=== PATIENT | male | born 1965 | race Caucasian/White ===

== ENCOUNTER 2017-01-27 13:20 | Inpatient (IN) | payer MEDICAID ==
[~2017-01-27] VITALS: Ht 170.2 cm; Wt 75.7 kg
[2017-01-27] MEDS ORDERED: LORazepam 2 MG/ML VIAL IM PRN ×2 (16:15)
[2017-01-27] MEDS ORDERED: LORazepam 0.5 MG TAB PO PRN (16:15)
[2017-01-27] MEDS ORDERED: MAGNESIUM HYDROXIDE SUSP 30 ML CUP PO PRN (16:15)
[2017-01-27] MEDS ORDERED: ALUMINUM/MAGNESIUM/SIMETH 30 ML CUP PO PRN (16:15)
[2017-01-27] MEDS ORDERED: ACETAMINOPHEN 325 MG TAB PO PRN (16:15)
[2017-01-27] MEDS ORDERED: LORazepam 1 MG TAB PO PRN (16:15)
[2017-01-27] MEDS ORDERED: FOLIC ACID 1 MG TAB PO ONE (16:30)
[2017-01-27] MEDS: NICOTINE 21 MG/24 HR PATCH T-DERMAL SCH (16:30)
[2017-01-27] MEDS: MULTIVITAMIN TAB PO SCH (16:30)
[2017-01-27] MEDS: THIAMINE HCL 100 MG TAB PO SCH (16:30)
--- NOTE | 2017-01-27 16:52 | HHI.HP ---
Provisional Diagnosis Admission Date Jan 27, 2017 at 15:19 [place] I. Unspecified psychosis, rule out neurocognitive disorder Certification of Person's Competence To Provide Express and Informed Consent I have personally examined Dayton White , a person being served at [facility] on, Jan 27, 2017 16:42. Express and informed consent means consent voluntarily given in writing, by a competent person, after sufficient explanation and disclosure of the subject matter involved to enable the person to make a knowing and willful decision without any element of force, fraud, deceit, duress, or other form of constraint or coercion. This person is 18 years of age or older, is not now known to be incompetent to consent to treatment with a guardian advocate, and does not have a health care surrogate or proxy currently making medical treatment decisions. I have found this person to be one of the following: [] Competent to provide express and informed consent, as defined above, for voluntary admission to this facility and is competent to provide express and informed consent for treatment. He/she has the consistent capacity to make well reasoned, willful, and knowing decisions concerning his or her medical or mental health treatment. The person fully and consistently understands the purpose of the admission for examination/placement and is fully capable of personally exercising all rights assured under [place] [x] Incompetent to provide express and informed consent to voluntary admission, and this is incompetent to provide express and informed consent to treatment. The person must be transferred to involuntary status and a petition for a guardian advocate filed with the Circuit Court. [] Refusing to provide express and informed consent to voluntary admission but is competent to provide express and informed consent for treatment. The person must be discharged or transferred to involuntary status. Form shall be completed within 24 hours of a person's arrival at the receiving facility and filed in the clinical record of each person: 1. Admitted on a voluntary basis 2. Permitted to provide express and informed consent to his/her own treatment 3. Allowed to transfer from involuntary to voluntary status 4. Prior to permitting a person to consent to his or her own treatment after having been previously found incompetent to consent to treatment. History of Present Illness Capacity: Lacks Capacity HPI Patient is a 51-year-old man, reports being with 2 children, states he is employed, with unclear past psychiatric history but as per chart alcohol use disorder, depression, unknown previous psychiatric hospitalizations or suicide attempts, with a past medical history as per chart with DVT, history of lung and throat cancer, gout was presented initially on 01/22/17 at [facility] for altered mental status and subsequently brought to the Ying act due to concerns of patient's ability to care for himself and was transferred to the inpatient psychiatry for further evaluation and management. Reviewing previous chart frontal in hospital patient had a head CT which was noted to have old infarct in the medial right cerebellar hemisphere, chest x-ray was negative and urine toxicology was negative. Patient was found walking in the hallway, cooperative interview with underwriter nurse. Patient is alert and oriented only to person not place or date. Patient states that presently and I is Obama. Patient reports that he is living with his but as per chart emergency contact is Blanksa White which may be due to sister. Patient is a poor historian with him, as will speech at times and disorganized. Past psychiatric history unclear as per patient he denies but is noted as per chart the patient is on BuSpar 30 minutes by mouth twice a day, diazepam 5 mg by mouth twice a day, lithium 300 mg by mouth 3 times a day risperidone 2 mg by mouth twice a day as well as aspirin, atorvastatin, folic acid, propanolol and thiamine. , Patient denies previous psychiatric hospitalization or suicide attempts Substance use history: Patient states that he quit using tobacco 2 years ago, continues daily alcohol use about 3 beers at a time last use was 7 days ago. Marijuana use last use was 2 weeks ago which she states she is occasionally, patient still reports remote cocaine use one year ago. Past medical history: Patient denies but as per chart DVT, history of lung and throat cancer and gout Allergies: NKDA Social history: Patient states he is domicile with a and 2 children for 40 years old, employed, eyes education high school, no yarsani affiliation, no background, no access to firearms. Review of Systems Except as stated in HPI: all other systems reviewed are Neg Past Psych History Psychological trauma history Unknown as patient is a poor historian Violence risk - others (6 mos) Low Violence risk - self (6 mos) Low Substance Abuse History Drugs/Alcohol past 12 months Patient states that he quit using tobacco 2 years ago, continues daily alcohol use about 3 beers at a time last use was 7 days ago. Marijuana use last use was 2 weeks ago which she states she is occasionally, patient still reports remote cocaine use one year ago. Past Family Social History Coded Allergies: No Known Allergies (Unverified Allergy, Unknown, 01/27/17) Current Medications Medications (Trade) Dose Ordered Sig/Angela Route Start Time Stop Time Status Last Admin (Ativan) 1 mg Q6H PRN PO 01/27/17 16:15 (Ativan Inj) 1 mg Q6H PRN IM 01/27/17 16:15 (Benadryl) 50 mg HS PRN PO 01/27/17 16:15 (Tylenol) 650 mg Q4H PRN PO 01/27/17 16:15 (Milk Of Magnesia Liq) 30 ml DAILY PRN PO 01/27/17 16:15 (Mag-Al Plus Susp Liq) 30 ml Q6H PRN PO 01/27/17 16:15 (Habitrol 21 Mg Patch.24 Hr) 1 patch DAILY T-DERMAL 01/27/17 16:30 Miscellaneous Information 1 DAILY T-DERMAL 01/28/17 09:00 (Theragran) 1 tab DAILY PO 01/27/17 16:30 (Vitamin B1) 100 mg DAILY PO 01/27/17 16:30 (Folate) 1 mg DAILY PO 01/28/17 09:00 Family Psych History Unknown as patient is a poor historian Social History Patient states he is domicile with a and 2 children for 40 years old, employed, eyes education high school, no yarsani affiliation, no background, no access to firearms. Patient's Strengths (min. 2) Verbal and communicative Physical Exam The patient upon evaluation not noted to be in acute distress, no gross motor abnormalities noted no tremor or EPS and signs of withdrawal at this time. No psychomotor agitation but is noted to have some psychomotor retardation. Mental Status Examination Appearance: Disheveled Consciousness: Alert Orientation: Person Motor Activity: Normal gait Speech: Slow, Incoherent (at times) Language: Adequate Fund of Knowledge: Inadequate Attention and Concentration: Inadequate Memory: Impaired Mood: Other ("okay") Affect: Blunt Thought Process & Associations: Disorganized Thought Content: Thought blocking Hallucination Type: None Delusion Type: None Suicidal Ideation: No Suicidal Plan: No Suicidal Intention: No Homicidal Ideation: No Homicidal Plan: No Homicidal Intention: No Insight: Poor Judgment: Poor Assessment & Plan Problem List: (1) Unspecified psychosis ICD Codes: F29 - Unspecified psychosis not due to a substance or known physiological condition Assessment & Plan Estimated LOS: 5-7 days. Patient is a 51-year-old man with a history of bipolar disorder, alcohol use disorder, depression as per chart, with a past medical history of DVT, history of lung and throat cancer and gout, who was transferred from [facility] due to concern for patient's ability care for self which she was put on a Ying act for admitted to the inpatient psychiatry for further evaluation and management here. Patient this time noted to be very poor historian, alert and oriented to person only and disorganized. Will resume medications as per chart from [facility]. Patient may have primary psychiatric diagnoses but was be ruled out of a possible neurocognitive disorder due to chronic alcohol use as well as history of stroke. Collateral information pending from family. Patient will be on CIWA protocol due to reported daily alcohol use. Labs and consult for hospitalist ordered. Discharge planning in progress Discharge Planning Patient to be discharged back home for possible placement once psychiatrically stable Elbert Jones MD Jan 27, 2017 16:52
[2017-01-27] MEDS: LITHIUM CARBONATE 300 MG TAB PO SCH (18:00)
[2017-01-27 20:06] VITALS: BP 119/76; PULSE 107; TEMP 98; O2SAT 97
[2017-01-27] MEDS: risperiDONE 1 MG TAB PO SCH (20:35)
[2017-01-28 06:27] VITALS: BP 104/70; PULSE 86; RESP 16; TEMP 98.2; O2SAT 99
[2017-01-28] MEDS: THIAMINE HCL 100 MG TAB PO SCH ×2 (09:00→09:10)
[2017-01-28] MEDS: REMOVE OLD PATCH T-DERMAL SCH (09:00)
[2017-01-28] MEDS: FOLIC ACID 1 MG TAB PO SCH ×2 (09:00→09:08)
[2017-01-28] MEDS: ASPIRIN EC 325 MG TABEC PO SCH (09:05)
[2017-01-28] MEDS: risperiDONE 1 MG TAB PO SCH ×2 (09:05→20:24)
[2017-01-28] MEDS: MULTIVITAMIN TAB PO SCH (09:05)
[2017-01-28] MEDS: ATORVASTATIN 10 MG TAB PO SCH (09:06)
[2017-01-28] MEDS: LITHIUM CARBONATE 300 MG TAB PO SCH ×3 (09:06→19:30)
[2017-01-28] MEDS: NICOTINE 21 MG/24 HR PATCH T-DERMAL SCH (09:11)
[2017-01-28 10:39] LABS: ANION GAP 8 MEQ/L (5-15); AST (GOT) 29 U/L (15-37); BICARBONATE 23.4 MEQ/L (21.0-32.0); BLOOD UREA NITROGEN 6 MG/DL (7-18); CHLORIDE 106 MEQ/L (98-107); GLOMERULAR FILTRATION RATE 85 ML/MIN (>89); MAGNESIUM 1.7 MG/DL (1.5-2.5); POTASSIUM 3.6 MEQ/L (3.5-5.1); SODIUM (NA) 137 MEQ/L (136-145)
[2017-01-28 10:48] LABS: ALKALINE PHOSPHATASE 72 U/L (45-117); ALT (GPT) 26 U/L (12-78); FREE T4 1.32 NG/DL (0.76-1.46); HDL CHOLESTEROL 44.2 MG/DL (40.0-60.0); LDL CHOLESTEROL 45 MG/DL (0-99); TOTAL BILIRUBIN ADULT 0.5 MG/DL (0.2-1.0)
--- NOTE | 2017-01-28 13:10 | EKG ---
Date Performed: 01/28/2017 Time Performed: 11:23:36 PTAGE: 51 years EKG: Sinus rhythm Small inferior Q-waves of undetermined significance Baseline electrical artifact PREVIOUS TRACING : 08/10/2011 14.38 Since previous tracing, the small inferior Q-waves ar e new, otherwise no significant change. Cause of the small Q-waves is undetermined. They are not larg e enough to meet criteria for inferior infarct. DOCTOR: Stephan Gomez Interpretating Date/Time 01/28/2017 13:08:39
[2017-01-28 13:45] LABS: AUTOMATED NEUTROPHIL # 6.6 TH/MM3 (1.8-7.7); BASOPHIL # 0.2 TH/MM3 (0-0.2); BASOPHIL % 2.3 % (0.0-2.0); EOSINOPHIL # 0.3 TH/MM3 (0-0.4); EOSINOPHIL % 3.7 % (0.0-4.0); LYMPH % 13.8 % (9.0-44.0); LYMPHOCYTE # 1.3 TH/MM3 (1.0-4.8); MEAN CELL VOLUME 90.9 FL (80.0-100.0); MEAN CORPUSCULAR HEMOGLOBIN 30.7 PG (27.0-34.0); MEAN CORPUSCULAR HGB CONC 33.8 % (32.0-36.0); NEUT % 72.2 % (16.0-70.0); PLATELET COUNT 294 TH/MM3 (150-450); RED BLOOD COUNT 4.62 MIL/MM3 (4.50-5.90); RED CELL DISTRIBUTION WIDTH 13.9 % (11.6-17.2); WHITE BLOOD COUNT 9.1 TH/MM3 (4.0-11.0)
[2017-01-28 13:48] LABS: HEMO FLAGS AUTO DIFF
--- NOTE | 2017-01-28 13:55 | HHI.PYPN ---
Subjective Remarks This is a request for second opinion. Admission note was reviewed and I agree with the contents. Case was discussed with nursing and patient was evaluated. Patient is alert and oriented 2. 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 He feels that he is not himself but cannot tell me why. He endorses suicidal ideation that are fleeting in nature without any plan or intent. Appears disheveled and preoccupied. There are no outbursts. There are no manic symptoms. [place] level is pending Mental Status Examination Appearance: Disheveled Consciousness: Alert Orientation: Person, Place Motor Activity: Normal gait Speech: Slow, Incoherent (at times) Language: Adequate Fund of Knowledge: Inadequate Attention and Concentration: Inadequate Memory: Impaired Mood: Other ("okay") Affect: Blunt Thought Process & Associations: Disorganized Thought Content: Thought blocking Hallucination Type: None Delusion Type: None Suicidal Ideation: Yes Suicidal Plan: No Suicidal Intention: No Homicidal Ideation: No Homicidal Plan: No Homicidal Intention: No Insight: Poor Judgment: Poor Results Labs Test 01/28/17 08:17 01/28/17 13:15 Blood Urea Nitrogen 6 MG/DL Creatinine 0.93 MG/DL Random Glucose 68 MG/DL Total Protein 6.7 GM/DL Albumin 3.2 GM/DL Calcium Level 9.2 MG/DL Phosphorus Level 3.2 MG/DL Magnesium Level 1.7 MG/DL Alkaline Phosphatase 72 U/L Aspartate Amino Transf (AST/SGOT) 29 U/L Alanine Aminotransferase (ALT/SGPT) 26 U/L Total Bilirubin 0.5 MG/DL Sodium Level 137 MEQ/L Potassium Level 3.6 MEQ/L Chloride Level 106 MEQ/L Carbon Dioxide Level 23.4 MEQ/L Anion Gap 8 MEQ/L Estimat Glomerular Filtration Rate 85 ML/MIN Triglycerides Level 97 MG/DL Cholesterol Level 109 MG/DL LDL Cholesterol 45 MG/DL HDL Cholesterol 44.2 MG/DL Cholesterol/HDL Ratio 2.46 RATIO Free Thyroxine 1.32 NG/DL Thyroid Stimulating Hormone 3rd Gen 7.130 uIU/ML White Blood Count 9.1 TH/MM3 Red Blood Count 4.62 MIL/MM3 Hemoglobin 14.2 GM/DL Hematocrit 42.0 % Mean Corpuscular Volume 90.9 FL Mean Corpuscular Hemoglobin 30.7 PG Mean Corpuscular Hemoglobin Concent 33.8 % Red Cell Distribution Width 13.9 % Platelet Count 294 TH/MM3 Mean Platelet Volume 8.3 FL Neutrophils (%) (Auto) 72.2 % Lymphocytes (%) (Auto) 13.8 % Monocytes (%) (Auto) 8.0 % Eosinophils (%) (Auto) 3.7 % Basophils (%) (Auto) 2.3 % Neutrophils # (Auto) 6.6 TH/MM3 Lymphocytes # (Auto) 1.3 TH/MM3 Monocytes # (Auto) 0.7 TH/MM3 Eosinophils # (Auto) 0.3 TH/MM3 Basophils # (Auto) 0.2 TH/MM3 CBC Comment AUTO DIFF Vitals/IOs Vital Signs Date Time Temp Pulse Resp B/P (MAP) Pulse Ox O2 Delivery O2 Flow Rate FiO2 01/28/17 06:27 98.2 86 16 104/70 (81) 99 Assessment & Plan Problem List: (1) Unspecified psychosis ICD Codes: F29 - Unspecified psychosis not due to a substance or known physiological condition Assessment & Plan I agree with the first opinion to continue petition. Criteria include suicidal ideation Justification for Cont. Inpt. Patient will decompensate in a less restrictive setting Shine Phillip DO Jan 28, 2017 13:55
[2017-01-28 14:35] LABS: BANDS 4 % (0-6); EOSINOPHILS 2 % (0-4); MYELOCYTES 1 % (0-0); NEUTROPHIL # MANUAL DIFF 7.4 TH/MM3 (1.8-7.7); POLYS (SEG NEUTROPHILS) 76 % (16-70); WBC DIFF SAMPLE 100
[2017-01-28 14:36] LABS: PLATELET ESTIMATE SMEAR NORMAL (NORMAL); PLATELET MORPHOLOGY NORMAL (NORMAL); SCAN/DIFF FINAL DIFF MANUAL
--- NOTE | 2017-01-28 15:21 | PD.CONS ---
HPI Service [facility] Hospitalists Consult Requested By Dr. 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 Hospitalist consultation was requested for medical management. Patient denies any chronic medical problems. States that he does not take any medications regularly. He has no physical complaints at this time. Review of Systems Constitutional: DENIES: Fever, Chills, Night Sweats Eyes: DENIES: Blurred vision, Vision loss Ears, nose, mouth, throat: DENIES: Hearing loss Respiratory: DENIES: Cough, Wheezing, Sputum production, Shortness of breath Cardiovascular: DENIES: Chest pain, Palpitations, Dyspnea on Exertion, Lower Extremity Edema Gastrointestinal: DENIES: Abdominal pain, Constipation, Diarrhea, Nausea, Vomiting Genitourinary: DENIES: Urinary frequency, Urinary incontinence, Urgency, Hematuria, Dysuria, Nocturia Musculoskeletal: DENIES: Joint pain, Muscle aches Integumentary: DENIES: Pruritus, Rash Hematologic/lymphatic: DENIES: Bruising Neurologic: DENIES: Headache Past Family Social History Allergies: Coded Allergies: No Known Allergies (Unverified Allergy, Unknown, 01/27/17) Past Medical History Denies. Psychiatry notes describe history of bipolar disorder, alcohol use disorder, depression, DVT, history of lung and throat cancer, gout. Past Surgical History Tonsillectomy Reported Medications None Family History Patient was adopted Social History The patient states that he used marijuana and cocaine in the past. Denies tobacco use. Per psychiatry notes, patient reports quitting smoking 2 years ago. He also reports drinking 3 beers a day. Stated that his last marijuana use was 2 weeks ago and last cocaine use was one year ago. Physical Exam Vital Signs Vital Signs Date Time Temp Pulse Resp B/P (MAP) Pulse Ox O2 Delivery O2 Flow Rate FiO2 01/28/17 06:27 98.2 86 16 104/70 (81) 99 01/27/17 20:06 98.0 107 119/76 (90) 97 Physical Exam GENERAL: Well-nourished, well-developed male in no acute distress. HEENT: Normocephalic, atraumatic. Pupils equal, round and reactive. Extraocular movements intact. No scleral icterus. No injection or drainage. Oropharynx is clear. Mucous membranes are moist. CARDIOVASCULAR: Regular rate and rhythm without murmurs, gallops, or rubs. RESPIRATORY: Clear to auscultation. No wheezes, rales, or rhonchi. Breathing is non-labored. GASTROINTESTINAL: Abdomen soft, non-tender, nondistended. EXTREMITIES: No lower extremity edema. No calf tenderness. PSYCH: Alert and oriented x 3. Laboratory Laboratory Tests Test 01/28/17 08:17 01/28/17 13:15 Blood Urea Nitrogen 6 Creatinine 0.93 Random Glucose 68 Total Protein 6.7 Albumin 3.2 Calcium Level 9.2 Phosphorus Level 3.2 Magnesium Level 1.7 Alkaline Phosphatase 72 Aspartate Amino Transf (AST/SGOT) 29 Alanine Aminotransferase (ALT/SGPT) 26 Total Bilirubin 0.5 Sodium Level 137 Potassium Level 3.6 Chloride Level 106 Carbon Dioxide Level 23.4 Anion Gap 8 Estimat Glomerular Filtration Rate 85 Triglycerides Level 97 Cholesterol Level 109 LDL Cholesterol 45 HDL Cholesterol 44.2 Cholesterol/HDL Ratio 2.46 Free Thyroxine 1.32 Thyroid Stimulating Hormone 3rd Gen 7.130 White Blood Count 9.1 Red Blood Count 4.62 Hemoglobin 14.2 Hematocrit 42.0 Mean Corpuscular Volume 90.9 Mean Corpuscular Hemoglobin 30.7 Mean Corpuscular Hemoglobin Concent 33.8 Red Cell Distribution Width 13.9 Platelet Count 294 Mean Platelet Volume 8.3 Neutrophils (%) (Auto) 72.2 Lymphocytes (%) (Auto) 13.8 Monocytes (%) (Auto) 8.0 Eosinophils (%) (Auto) 3.7 Basophils (%) (Auto) 2.3 Neutrophils # (Auto) 6.6 Lymphocytes # (Auto) 1.3 Monocytes # (Auto) 0.7 Eosinophils # (Auto) 0.3 Basophils # (Auto) 0.2 CBC Comment AUTO DIFF Differential Total Cells Counted 100 Neutrophils % (Manual) 76 Band Neutrophils % 4 Lymphocytes % 9 Monocytes % 8 Eosinophils % 2 Neutrophils # (Manual) 7.4 Myelocytes 1 Differential Comment FINAL DIFF MANUAL Platelet Estimate NORMAL Platelet Morphology Comment NORMAL [place] Level 1.5 Result Diagram: 01/28/17 1315 01/28/17 0817 Assessment and Plan Assessment and Plan 1. Unspecified psychosis: Management per psychiatry. 2. History of polysubstance abuse: Patient reports remote use of cocaine, and occasional use of marijuana. 3. History of alcohol abuse: [facility] protocol. Folic acid, thiamine, multivitamin. 4. Elevated TSH: Free T4 is within normal limits. Not on thyroid medication. Would advise recheck in [address] [facility] will sign off. Please reconsult if necessary. Crispin Martin MD Jan 28, 2017 15:21
[2017-01-28 17:59] VITALS: BP 150/89; PULSE 109; RESP 17; TEMP 97.8; O2SAT 96
[2017-01-29 05:26] VITALS: BP 116/53; PULSE 80; RESP 16; TEMP 97.9; O2SAT 96
--- NOTE | 2017-01-29 05:49 | MG ---
cc: DERREK MCKEON Lab No: Date: 01/28/2017 Age: 51 Sex: M Race: DATE OF [address] Jones MEDICAL HISTORY 1. The patient was [facility] Acted for altered mental status and being unable to care for himself. 2. History of alcohol, tobacco, substance abuse, marijuana and history of cocaine. 3. Depression, anxiety. 4. DVT. 5. Throat cancer. 6. Status post lobectomy. 7. Gout. 8. Encephalopathy. 9. Stroke. 10. High cholesterol. 11. Chest pain. MEDICATIONS 1. Folate. 2. Aspirin. 3. Lipitor. DESCRIPTION The background activity is 8-9 Hz alpha superimposed by excess beta activity. An EEG recording is contaminated by excessive movement and muscle artifact. Hyperventilation was omitted. Photic stimulation did not elicit a regular driving response. There were no electrographic seizures or ictal activity or epileptiform discharges noted. INTERPRETATION This is a normal awake EEG. Beta activity is a nonspecific finding that may be related to medication adverse effect like benzos or barbiturates. There were no electrographic, seizures/ictal activity or epileptiform discharges noted during the recording. Clinical correlation is recommended. MD JEFFREY Castro/SUSANA /10:35 PM /5:42 AM MTDJulia
[2017-01-29] MEDS: THIAMINE HCL 100 MG TAB PO SCH ×2 (08:59→09:00)
[2017-01-29] MEDS: LITHIUM CARBONATE 300 MG TAB PO SCH ×3 (08:59→22:09)
[2017-01-29] MEDS: ATORVASTATIN 10 MG TAB PO SCH (08:59)
[2017-01-29] MEDS: risperiDONE 1 MG TAB PO SCH ×2 (08:59→22:09)
[2017-01-29] MEDS: MULTIVITAMIN TAB PO SCH (08:59)
[2017-01-29] MEDS: REMOVE OLD PATCH T-DERMAL SCH (09:00)
[2017-01-29] MEDS: ASPIRIN EC 325 MG TABEC PO SCH (09:00)
[2017-01-29] MEDS: FOLIC ACID 1 MG TAB PO SCH ×2 (09:00)
[2017-01-29] MEDS: NICOTINE 21 MG/24 HR PATCH T-DERMAL SCH (09:00)
[2017-01-29 16:31] LABS: HEMOGLOBIN A1a 0.9 %; HEMOGLOBIN A1b 0.7 %; HEMOGLOBIN Ao 86.5 %; HEMOGLOBIN F 1.1 %; HEMOGLOBIN LA1C 1.8 %; HEMOGLOBIN P3 3.4 %
[2017-01-29 16:49] VITALS: BP 124/72; PULSE 97; RESP 18; TEMP 98.8; O2SAT 97
--- NOTE | 2017-01-29 20:36 | HHI.PYPN ---
Subjective Remarks Patient is seen for follow up; chart reviewed. Patient found lying on hospital bed, calm and cooperative. Patient noted to be slightly more engaging in interview but noted patient to have difficulty with memory. Initially patient stated living with his previously but now states that he was living with a friend. He states that he was visited by these friends recently, Asael and his . He is currently alert and oriented to person and date only and believes he is in a rehabilitation program. He denies SI, HI, AVH or delusions at this time. Review of Systems Except as stated in HPI: all other systems reviewed are Neg Mental Status Examination Appearance: Disheveled Consciousness: Alert Orientation: Person, Place Motor Activity: Normal gait Speech: Slow, Incoherent (at times) Language: Adequate Fund of Knowledge: Inadequate Attention and Concentration: Inadequate Memory: Impaired Mood: Other ("okay") Affect: Blunt Thought Process & Associations: Disorganized Thought Content: Thought blocking Hallucination Type: None Delusion Type: None Suicidal Ideation: No Suicidal Plan: No Suicidal Intention: No Homicidal Ideation: No Homicidal Plan: No Homicidal Intention: No Insight: Poor Judgment: Poor Results Vitals/IOs Vital Signs Date Time Temp Pulse Resp B/P (MAP) Pulse Ox O2 Delivery O2 Flow Rate FiO2 01/29/17 16:49 98.8 97 18 124/72 (89) 97 Assessment & Plan Problem List: (1) Unspecified psychosis ICD Codes: F29 - Unspecified psychosis not due to a substance or known physiological condition Assessment & Plan Patient at this time is noted to be confused and alert and oriented to person and date. Unclear whom he lives with and collateral is pending as it will provide more information to his current living conditions as well as what services he will require. Patient is a poor historian. Recent EEG was normal, [place] level was supratherapeutic (1.5) and will decrease [place] to 300mg PO daily and recheck levels. Continue rest of medications. Collateral information pending. Discharge planning in progress. Justification for Cont. Inpt. At risk for further decompensation if at lower level of care. Elbert Jones MD Jan 29, 2017 20:36
[2017-01-29 22:00] VITALS: BP 133/69; PULSE 90; RESP 18; TEMP 97.6
[2017-01-30 06:31] VITALS: BP 141/69; PULSE 85; RESP 18; TEMP 98; O2SAT 98
[2017-01-30] MEDS: REMOVE OLD PATCH T-DERMAL SCH (09:00)
[2017-01-30] MEDS: FOLIC ACID 1 MG TAB PO SCH ×2 (09:00→09:06)
[2017-01-30] MEDS: THIAMINE HCL 100 MG TAB PO SCH ×2 (09:00→09:05)
[2017-01-30] MEDS: MULTIVITAMIN TAB PO SCH (09:05)
[2017-01-30] MEDS: ASPIRIN EC 325 MG TABEC PO SCH (09:05)
[2017-01-30] MEDS: LITHIUM CARBONATE 300 MG TAB PO SCH ×2 (09:05→21:47)
[2017-01-30] MEDS: ATORVASTATIN 10 MG TAB PO SCH (09:05)
[2017-01-30] MEDS: NICOTINE 21 MG/24 HR PATCH T-DERMAL SCH (09:06)
[2017-01-30] MEDS: risperiDONE 1 MG TAB PO SCH ×2 (09:06→21:46)
--- NOTE | 2017-01-30 14:46 | HHI.PYPN ---
Subjective Remarks Patient seen for follow-up, chart reviewed. Patient found sitting on hospital bed noted to be calm and cooperative. Patient stated he is feeling "terrible", reports he has been having difficulty with his concentration for the past 2 weeks. Patient states that he has been living alone for the past 4 months and that he last saw his primary care doctor 3 weeks ago was unable to recall name of his doctor. Patient continues to give conflicting reports of whom he has been living with, initially she had stated he is lives with his and his children than stated living with some friends was unable to recall their names and stated that he lives alone for the past 4 months. Patient continues to be a poor historian and unreliable at this time. Review of Systems Except as stated in HPI: all other systems reviewed are Neg Mental Status Examination Appearance: Disheveled Consciousness: Alert Orientation: Person, Place Motor Activity: Normal gait Speech: Slow, Incoherent (at times) Language: Adequate Fund of Knowledge: Inadequate Attention and Concentration: Inadequate Memory: Impaired Mood: Sad, Other ("okay") Affect: Blunt Thought Process & Associations: Disorganized Thought Content: Thought blocking Hallucination Type: None Delusion Type: None Suicidal Ideation: No Suicidal Plan: No Suicidal Intention: No Homicidal Ideation: No Homicidal Plan: No Homicidal Intention: No Insight: Poor Judgment: Poor Results Vitals/IOs Vital Signs Date Time Temp Pulse Resp B/P (MAP) Pulse Ox O2 Delivery O2 Flow Rate FiO2 01/30/17 06:31 98.0 85 18 141/69 (93) 98 Intake and Output 01/30/17 01/30/17 01/30/17 07:59 15:59 23:59 Intake Total 480 ml 240 ml Balance 480 ml 240 ml Assessment & Plan Problem List: (1) Unspecified psychosis ICD Codes: F29 - Unspecified psychosis not due to a substance or known physiological condition Assessment & Plan Patient this time continues to have cognitive difficulties as well as impairment in memory. Patient noted to be internally preoccupied and unable to engage effectively interview. We'll continue current treatment. Will order head CT, recent EEG was normal study, will order labs for the sees RPR, UA, HIV post (. Continue to obtain collateral information as patient has minimal history that is related as he is a poor historian at this time and unable to engage effectively. Discharge planning in progress Justification for Cont. Inpt. At risk for further decompensation if at lower level of care Discharge Planning Unclear who patient is living with. Elbert Jones MD Jan 30, 2017 14:46
[2017-01-30 18:00] VITALS: BP 115/80; PULSE 127; RESP 22; TEMP 98.3; O2SAT 94
[2017-01-31 05:59] VITALS: BP 142/89; PULSE 91; RESP 18; TEMP 98; O2SAT 98
[2017-01-31] MEDS: FOLIC ACID 1 MG TAB PO SCH ×2 (08:31→08:35)
[2017-01-31] MEDS: ATORVASTATIN 10 MG TAB PO SCH (08:32)
[2017-01-31] MEDS: MULTIVITAMIN TAB PO SCH (08:32)
[2017-01-31] MEDS: ASPIRIN EC 325 MG TABEC PO SCH (08:32)
[2017-01-31] MEDS: NICOTINE 21 MG/24 HR PATCH T-DERMAL SCH (08:32)
[2017-01-31] MEDS: LITHIUM CARBONATE 300 MG TAB PO SCH ×2 (08:32→21:23)
[2017-01-31] MEDS: THIAMINE HCL 100 MG TAB PO SCH ×2 (08:32→08:35)
[2017-01-31] MEDS: risperiDONE 1 MG TAB PO SCH ×2 (08:32→21:22)
[2017-01-31] MEDS: REMOVE OLD PATCH T-DERMAL SCH (08:33)
--- NOTE | 2017-01-31 09:09 | PD.TTN ---
Patient Problems 1. Discharge planning 2. Medication compliance 3. Knowledge deficit 4. Lack of coping skills Progress Toward Goals Provider Present: Dr. Telma Jones Provider Input: 01-31-17 Dr. Jones reported the patient is a transfer from another hospital. Patient has been running away from his home, is a poor historian, and confused. Additionally, patient suffers from metabolic disturbances. Psychiatric Counselors Present: ANNE Obregon Psych Therapist Input: 01-31-17 Counselor will check with [facility] in an effort to determine patient's previous medical and psychiatric history. Group Spec/RT/OT/MONTAÑO Present: SABRA Rick Group Spec/RT/OT/MONTAÑO Input: 01-31-17 Patient is refusing to participate in recreational group activities. Documentation Scribe: Anne Obregon Date Resolved: Jan 31, 2017 Marie Corral Jan 31, 2017 09:09
--- NOTE | 2017-01-31 09:26 | RADRPT ---
EXAM DATE/TIME: 01/31/2017 09:10 [place] COMPARISON: No previous studies available for comparison. INDICATIONS : Altered mental status, psychosis. RADIATION DOSE: 56.35 CTDIvol (mGy) MEDICAL HISTORY : Stroke. Carcinoma, lung. Hypertension. SURGICAL HISTORY : None. ENCOUNTER: Initial ACUITY: 1 day PAIN SCALE: 0/10 LOCATION: cranial TECHNIQUE: Multiple contiguous axial images were obtained of the head. Using automated exposure control and adj ustment of the mA and/or kV according to patient size, radiation dose was kept as low as reasonably a chievable to obtain optimal diagnostic quality images. DICOM format image data is available electro nically for review and comparison. FINDINGS: CEREBRUM: The ventricles are normal for age. No evidence of midline shift, mass lesion, hemorrhage or acute in farction. No extra-axial fluid collections are seen. POSTERIOR FOSSA: Low-density lesion right cerebellum. The brainstem is intact. The 4th ventricle is midline. The cer ebellopontine angle is unremarkable. EXTRACRANIAL: The visualized portion of the orbits is intact. SKULL: The calvaria is intact. No evidence of skull fracture. CONCLUSION: 1. Remote infarct right cerebellum. 2. No acute intracranial abnormality. Elbert Bentley MD on January 31, 2017 at 9:24 Board Certified Radiologist. This report was verified electronically.
--- NOTE | 2017-01-31 16:03 | HHI.PYPN ---
Subjective Remarks Patient seen for follow-up, chart reviewed. Discussion she staff reported the patient had CT scan done earlier this morning, slept well, noted be up walking on the unit and noted that patient has spoken with his mother. Patient was found having lunch but able to interact with interview today. Patient states that he has been feeling "okay". Patient states she'll visited by his caregivers yesterday was not nearly was able to elaborate details. Patient noted to be very tearful states he wants his life back. 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 Currently he states he wants to go back to work. As stated that he wants put his life back together. Patient at this time denies any perceptual disturbances or delusions. Patient noted to have difficulty with speech, less thought blocking today more engaging and more affect today. Head CT reported remote right infarct in cerebellum, labs reported RPR was negative, with HIV was negative as well. Collateral contacts: Jah and Anna Wright [phone]; Antonietta (mom - also power of attorney recruiter) [phone] Review of Systems Except as stated in HPI: all other systems reviewed are Neg Mental Status Examination Appearance: Disheveled Consciousness: Alert Orientation: Person, Place Motor Activity: Normal gait Speech: Slow, Incoherent (at times due to patient not having his dentures) Language: Adequate Fund of Knowledge: Inadequate Attention and Concentration: Inadequate Memory: Impaired Mood: Sad, Other ("okay") Affect: Sad, Other (tearful) Thought Process & Associations: Linear, Other (concrete) Thought Content: Thought blocking Hallucination Type: None Delusion Type: None Suicidal Ideation: No Suicidal Plan: No Suicidal Intention: No Homicidal Ideation: No Homicidal Plan: No Homicidal Intention: No Insight: Poor Judgment: Poor Results Labs Labs reviewed Test 01/31/17 07:17 Vitamin B12 Level 1313 PG/ML Rapid Plasma Reagin NON-REACTIVE HIV (1&2) Antibody NEGATIVE Vitals/IOs Vital Signs Date Time Temp Pulse Resp B/P (MAP) Pulse Ox O2 Delivery O2 Flow Rate FiO2 01/31/17 05:59 98.0 91 18 142/89 (106) 98 Assessment & Plan Problem List: (1) Unspecified psychosis ICD Codes: F29 - Unspecified psychosis not due to a substance or known physiological condition Assessment & Plan Patient at this time continues to be noted to have some psychomotor retardation , speech latency as well as some thought blocking but appears to be able to engage more in interview and noted to have more reactive affect. Recent head CT you was noted to have an old infarct but no acute lesions, RPR and HIV were negative. We'll order a lithium level today along with BMP. Continue current treatment. Collateral information pending. Discharge planning in progress Justification for Cont. Inpt. At risk for further decompensation if at lower level of care Discharge Planning Patient to return back to residence which appears to be to caregivers but requires confirmation. Elbert Jones MD Jan 31, 2017 16:03
[2017-01-31 16:43] VITALS: BP 112/65; PULSE 107; RESP 18; TEMP 97.7; O2SAT 98
[2017-01-31] MEDS: diphenhydrAMINE HCL 50 MG CAP PO PRN (21:23)
[2017-02-01 01:45] LABS: BICARBONATE 28.2 MEQ/L (21.0-32.0); POTASSIUM 3.8 MEQ/L (3.5-5.1)
[2017-02-01 05:30] VITALS: BP 120/75; PULSE 73; RESP 16; TEMP 98; O2SAT 98
[2017-02-01] MEDS: ATORVASTATIN 10 MG TAB PO SCH (08:38)
[2017-02-01] MEDS: MULTIVITAMIN TAB PO SCH (08:38)
[2017-02-01] MEDS: ASPIRIN EC 325 MG TABEC PO SCH (08:38)
[2017-02-01] MEDS: risperiDONE 1 MG TAB PO SCH ×2 (08:39→21:11)
[2017-02-01] MEDS: LITHIUM CARBONATE 300 MG TAB PO SCH (08:39)
[2017-02-01] MEDS: NICOTINE 21 MG/24 HR PATCH T-DERMAL SCH (08:41)
[2017-02-01] MEDS: REMOVE OLD PATCH T-DERMAL SCH (08:41)
[2017-02-01] MEDS: THIAMINE HCL 100 MG TAB PO SCH ×2 (09:00)
[2017-02-01] MEDS: FOLIC ACID 1 MG TAB PO SCH ×2 (09:00)
--- NOTE | 2017-02-01 09:40 | PD.TTN ---
Patient Problems 1. Discharge planning 2. Medication compliance 3. Knowledge deficit 4. Lack of coping skills Progress Toward Goals Provider Present: Dr. Telma Jones Provider Input: 01-31-17 Dr. Jones reported the patient is a transfer from another hospital. Patient has been running away from his home, is a poor historian, and confused. Additionally, patient suffers from metabolic disturbances. Psychiatric Counselors Present: JYOTHI Obregon Psych Therapist Input: 01-31-17 Counselor will check with [facility] in an effort to determine patient's previous medical and psychiatric history. Group Spec/RT/OT/MONTAÑO Present: SABRA Rick Group Spec/RT/OT/MONTAÑO Input: 01-31-17 Patient is refusing to participate in recreational group activities. Discharge Plan Patient's choice of Provider Counselor has spoken to patient's parents, (mom - also power of workers compensation attorney) , who reported the patient will be returning home with his caregivers, Jah and Anna Wright [phone], when patient is psychiatrically stable. Documentation Scribe: JYOTHI Obregon Date Resolved: Jan 31, 2017 Marie Corral Feb 01, 2017 09:40
--- NOTE | 2017-02-01 14:09 | HHI.PYPN ---
Subjective Remarks Patient seen for follow-up, chart reviewed. Patient was admitted to mental health court this patient was retained on a continuance. Patient states that he had been feeling "alright" patient noted to be tearful during interview stating that he feels "sad" rating his mood as 9 out of 1010 being the worst. Patient denies any suicide ideation denies any perceptual disturbances. Patient states he last spoke with his one month ago and unsure sure when he last spoke to his children. Review of Systems Except as stated in HPI: all other systems reviewed are Neg Mental Status Examination Appearance: Disheveled Consciousness: Alert Orientation: Person, Place Motor Activity: Normal gait Speech: Slow, Incoherent (at times due to patient not having his dentures) Language: Adequate Fund of Knowledge: Inadequate Attention and Concentration: Inadequate Memory: Impaired Mood: Sad, Other ("okay") Affect: Sad, Other (tearful) Thought Process & Associations: Linear, Other (concrete) Thought Content: Thought blocking Hallucination Type: None Delusion Type: None Suicidal Ideation: No Suicidal Plan: No Suicidal Intention: No Homicidal Ideation: No Homicidal Plan: No Homicidal Intention: No Insight: Poor Judgment: Poor Results Vitals/IOs Vital Signs Date Time Temp Pulse Resp B/P (MAP) Pulse Ox O2 Delivery O2 Flow Rate FiO2 02/01/17 05:30 98.0 73 16 120/75 (90) 98 Assessment & Plan Problem List: (1) Unspecified psychosis ICD Codes: F29 - Unspecified psychosis not due to a substance or known physiological condition Assessment & Plan Patient at this time continues to be noted to be confused alert and oriented only to person, difficulty with memory and noted to be dysphoric today. Patient lithium level was 1.4 despite reduction in lithium dose. We'll reduce lithium to 200 mg by mouth twice a day with lithium level follow-up. Continue same medications. Further collateral information pending. Discharge planning in progress Justification for Cont. Inpt. At risk for further decompensation if at lower level of care Discharge Planning Patient is discharged back to his residence caretakers once psychiatrically stable Elbert Jones MD Feb 01, 2017 14:09
[2017-02-01] MEDS: LITHIUM ORAL SOLUTION 300 MG/5 ML CUP PO SCH ×2 (15:18→21:12)
[2017-02-01 16:31] VITALS: BP 144/90; PULSE 104; RESP 17; TEMP 95.9; O2SAT 99
[2017-02-01] MEDS: diphenhydrAMINE HCL 50 MG CAP PO PRN (21:11)
[2017-02-02 05:09] VITALS: BP 129/84; PULSE 86; RESP 16; TEMP 97.6; O2SAT 97
[2017-02-02] MEDS: REMOVE OLD PATCH T-DERMAL SCH (09:00)
[2017-02-02] MEDS: NICOTINE 21 MG/24 HR PATCH T-DERMAL SCH (09:09)
[2017-02-02] MEDS: ASPIRIN EC 325 MG TABEC PO SCH (09:10)
[2017-02-02] MEDS: FOLIC ACID 1 MG TAB PO SCH (09:10)
[2017-02-02] MEDS: risperiDONE 1 MG TAB PO SCH ×2 (09:10→21:17)
[2017-02-02] MEDS: MULTIVITAMIN TAB PO SCH (09:11)
[2017-02-02] MEDS: ATORVASTATIN 10 MG TAB PO SCH (09:11)
[2017-02-02] MEDS: THIAMINE HCL 100 MG TAB PO SCH (09:11)
[2017-02-02] MEDS: LITHIUM ORAL SOLUTION 300 MG/5 ML CUP PO SCH ×2 (09:13→21:17)
--- NOTE | 2017-02-02 09:49 | HHI.PYPN ---
Subjective Remarks I have seen and examined this patient today, discussed the case with nursing charge. Patient was in bed, seems to be lethargic, distant, poorly engageable in a conversation. He reports feeling okay, denies suicidal and homicidal ideation, denies visual and auditory hallucinations. But, the patient is disoriented in time and place. His vital signs are unremarkable. Patient has been mostly isolated, no interacting with other peers and staff, but he is eating and compliant with medications. Mental Status Examination Appearance: Disheveled Consciousness: Alert Orientation: Person, Place Motor Activity: Normal gait Speech: Slow, Incoherent (at times due to patient not having his dentures) Language: Adequate Fund of Knowledge: Inadequate Attention and Concentration: Inadequate Memory: Impaired Mood: Sad, Other ("okay") Affect: Sad, Other (tearful) Thought Process & Associations: Linear, Other (concrete) Thought Content: Thought blocking Hallucination Type: None Delusion Type: None Suicidal Ideation: No Suicidal Plan: No Suicidal Intention: No Homicidal Ideation: No Homicidal Plan: No Homicidal Intention: No Insight: Poor Judgment: Poor Results Vitals/IOs Vital Signs Date Time Temp Pulse Resp B/P (MAP) Pulse Ox O2 Delivery O2 Flow Rate FiO2 02/02/17 05:09 97.6 86 16 129/84 (99) 97 Assessment & Plan Problem List: (1) Unspecified psychosis ICD Codes: F29 - Unspecified psychosis not due to a substance or known physiological condition Assessment & Plan: Continue current psychotropics. Monitor closely vital signs a mental status, patient might benefit of a medical consult for further work up od after mental status and lethargy. Assessment & Plan Estimated LOS: days Justification for Cont. Inpt. Patient needs to continue psychiatric hospitalization for stabilization. Oscar Jarrell MD Feb 02, 2017 09:49
--- NOTE | 2017-02-02 15:36 | PD.HHIRBSE ---
Patient History Record/History Review Reason for Referral: The patient is a 51 year old right handed male with a history of bipolar disorder, lung cancer and throat cancer who was recently Ying Acted on 2016 for further evaluation and management of his psychiatric status. This patient has a history of prior stroke and chronic alcohol disorder. His recent labs were normal and head CT was notable for right cerebellar infarct. He referred for baseline neurobehavioral status examination to assess cognitive, behavioral and emotional aspects of the injury and to provide treatment recommendations. Neuropsych Precautions: To be determined. Past Surgical/Medical History Past Surgery: Yes Major surgery in last 100 days: Unknown Hx Anesthesia Reactions: No Hx Orthopedic Surgery: Yes (RIGHT HAND 2007) Hx of Neuro Prob: Yes (Encephalopathy) Hx Cerebrovascular Accident: Yes Hx of Musculoskeletal Pro: No (GOUT) Hypertension (High Blood Press: Yes Hx Clotting Problems: Yes (DVT) Hx Chest Pain: Yes Hx of Respiratory Problem: Yes (Lung cancer/status post lobectomy) Hx of GI Problems: No Hx of Problems: No Hx of Immuno Disor: No Hx of Endocrine Problems: No Hx of Eye Probl: No Hx of Hearing or Ear Problems: No Hx Dental Problems: No Hx Psychiatric Problems: Yes Hx Anxiety: Yes Hx Depression: Yes Hx Blood Dyscrasias: No Hx of Body/Medical Devices: No Blood Transfusion History Will receive Blood /Blood prod: No Hx Blood Transfusions: No Mental Status Assessment Orientation: oriented to Self, oriented to Place Mental Status: Impaired: Thought processing, Language/Interactions, Attention, Learning/Memory, Problem-Solving Observation The patient is lethargic and oriented to person, place, and year. He is not oriented to the circumstances surrounding the reason for hospitalization. In terms of attention skills, the patient was unable to consistently remain on task and remember basic instructions; he was unble to remember or carry out complex instructions. In terms of memory functioning, the patient was unable to remember greater than one of three words after a brief period of time. The patient did not initiate spontaneous conversation, and only talked when spoken to. Speech was characterized by impaired prosody, articulation, volume and rate. Basic naming skills were marginally intact. Language repetition skills were intact. The patients comprehensions for basic one- and two-stage commands were poor. Basic verbal abstraction and problem-solving skills were impaired. The patient appears to posses minimal insight and awareness into their situation and within the limits of this brief evaluation, poor judgment. Please note that more formal assessment of his neuropsychological status was unable to proceed further than what is presented here due to his lethargy and inconsistent effort. Impression Neurocognitive disorder of unspecified severity. Adjustment/Coping Assessment Adjustment/Coping: Severe: Awareness, Insight, Not Assessed: Depression, Anxiety, Pain Observation The patients thought content appeared free from suicidal, homicidal or paranoid ideation, and the patients thought processes were concrete, perseverative and bradyphrenic. The patients mood was apathetic, and his affect was flat. LTG Status: Deferred STG Status: Deferred Team Members: Neuropsychologist Behavior Assessment Agitation: None Treatment Engagement: Minimal Observation Behaviorally, the patient demonstrated no signs of agitation, impulsivity or disinhibition. There was no apparent evidence of a formal thought disorder or psychosis, but the opinion concerning this observation was based primarily on the paucity of behavior that was able to be observed given his lethargy, bradyphrenia, and poor effort. LTG - Status: Deferred STG Status: Deferred Team Members: Neuropsychologist Diagnosis/Discharge Plan Impression This 51 year old man with a history of bipolar disorder, lung and throat cancer , cerebellar stroke, chronic alcohol dependence and bipolar disorder was referred for neuropsychological evaluation. The ability to psychometrically test this individual was attenuated by his lethargy, bradyphrenia and limited effort, but in a basic sense, there is evidence of neurocognitive decline from a higher level of estimated baseline ability, particularly memory and complex reasoning skills. He is currently hospitalized for unspecified psychosis, likely related to his bipolar condition. Given the neuroanatomical location of his stroke, I am not impressed from a neuropsychological standpoint as this being the amanda of his neurocognitive issues. Rather, a more plausible contributing condition to his clinical presentation is an underlying major neurocognitive disorder related to his long duration alcohol dependence resulting in a substance induced persistent dementia. Diagnosis: (1) Unspecified psychosis (2) Substance-induced persisting dementia Maximizing acute care outcome Abstinence from intoxicating substances going forward is mandatory, although given his neurocognitive issues any treatment program will unlikely be of benefit because he is unable to abstract essential information, generalize such information to his current situation, or remember consistently what was said to him. Rather, he will need to remain in a controlled environment. Also continued psychiatric evaluation and management of his psychiatric conditions is recommended. It is also recommended that the patient be monitored for emergent behavioral impulsivity as the medical condition evolves. This patient s neuropathological challenges may limit his improvement going forward, and these challenges will require specialized therapeutic skills to maximize outcome. At this point in the recovery process, the patient does not have cognitive capacity as the patient is unable to understand a situation and its likely consequences, nor is he able to manipulate information rationally. Cognitive capacity will be assessed throughout the recovery process. Discharge Planning Anticipated Problems Ongoing areas of concern will include behavioral impulsivity, lack of insight and judgment, which may not improve with time or treatment. Treatment Plan This clinician will continue to follow with you throughout the course of this patients psychiatric treatment, and I will be available to meet with the patients family/support system to facilitate their understanding and the ongoing care of their family member. The goals of neuropsychological intervention shall be both educational and supportive to the family/support system as is deemed clinically appropriate. Discharge Needs As per Psychiatry. Thank you Thank you for the opportunity to assist in this patients care. Joni Lambert, Ph.D., ABPP Board Certified in Clinical Neuropsychology [place] [employer] [place] Licensed Psychologist #[id number] Joni Lambert PhD Feb 02, 2017 3:35 pm
[2017-02-02 17:23] VITALS: BP 117/66; PULSE 84; RESP 16; TEMP 93.1; O2SAT 98
[2017-02-03 05:44] VITALS: BP 118/75; PULSE 76; RESP 16; TEMP 97.6; O2SAT 100
[2017-02-03] MEDS: NICOTINE 21 MG/24 HR PATCH T-DERMAL SCH (08:51)
[2017-02-03] MEDS: ASPIRIN EC 325 MG TABEC PO SCH (08:53)
[2017-02-03] MEDS: LITHIUM ORAL SOLUTION 300 MG/5 ML CUP PO SCH ×2 (08:53→21:12)
[2017-02-03] MEDS: ATORVASTATIN 10 MG TAB PO SCH (08:54)
[2017-02-03] MEDS: risperiDONE 1 MG TAB PO SCH ×2 (08:55→21:13)
[2017-02-03] MEDS: MULTIVITAMIN TAB PO SCH (08:56)
[2017-02-03] MEDS: FOLIC ACID 1 MG TAB PO SCH (08:56)
[2017-02-03] MEDS: THIAMINE HCL 100 MG TAB PO SCH (08:56)
[2017-02-03] MEDS: REMOVE OLD PATCH T-DERMAL SCH (09:00)
--- NOTE | 2017-02-03 14:41 | HHI.PYPN ---
Subjective Remarks Patient was seen and case discussed with nursing. Patient remains quite disorganized and loose. Seclusive to his room. He has difficulty expressing his thoughts in a coherent manner. Is alert and oriented times 2. Affect is anxious. Behaving well on the unit Mental Status Examination Appearance: Disheveled Consciousness: Alert Orientation: Person, Place Motor Activity: Normal gait Speech: Slow, Incoherent (at times due to patient not having his dentures) Language: Adequate Fund of Knowledge: Inadequate Attention and Concentration: Inadequate Memory: Impaired Mood: Sad, Other ("okay") Affect: Sad, Other (tearful) Thought Process & Associations: Loose associations Thought Content: Thought blocking Hallucination Type: None Delusion Type: None Suicidal Ideation: No Suicidal Plan: No Suicidal Intention: No Homicidal Ideation: No Homicidal Plan: No Homicidal Intention: No Insight: Poor Judgment: Poor Results Vitals/IOs Vital Signs Date Time Temp Pulse Resp B/P (MAP) Pulse Ox O2 Delivery O2 Flow Rate FiO2 02/03/17 05:44 97.6 76 16 118/75 (89) 100 Intake and Output 02/03/17 02/03/17 02/04/17 08:00 16:00 00:00 Intake Total 300 ml Balance 300 ml Assessment & Plan Problem List: (1) Unspecified psychosis ICD Codes: F29 - Unspecified psychosis not due to a substance or known physiological condition Assessment & Plan Continue current treatment plan Justification for Cont. Inpt. Patient would decompensate in a less restrictive setting Shine Phillip DO Feb 03, 2017 14:41
--- NOTE | 2017-02-03 14:45 | HHI.PYPN ---
Subjective Remarks Patient was seen and case discussed with nursing. Per nursing patient remains seclusive to room. He is alert and oriented 2. Affect is anxious and insight remains poor. Continues to deny psychotic symptoms. Compliant with his medications Mental Status Examination Appearance: Disheveled Consciousness: Alert Orientation: Person, Place Motor Activity: Normal gait Speech: Slow, Incoherent (at times due to patient not having his dentures) Language: Adequate Fund of Knowledge: Inadequate Attention and Concentration: Inadequate Memory: Impaired Mood: Sad, Other ("okay") Affect: Sad, Other (tearful) Thought Process & Associations: Logical Thought Content: Thought blocking Hallucination Type: None Delusion Type: None Suicidal Ideation: No Suicidal Plan: No Suicidal Intention: No Homicidal Ideation: No Homicidal Plan: No Homicidal Intention: No Insight: Poor Judgment: Poor Results Vitals/IOs Vital Signs Date Time Temp Pulse Resp B/P (MAP) Pulse Ox O2 Delivery O2 Flow Rate FiO2 02/03/17 05:44 97.6 76 16 118/75 (89) 100 Intake and Output 02/03/17 02/03/17 02/03/17 07:59 15:59 23:59 Intake Total 300 ml Balance 300 ml Assessment & Plan Problem List: (1) Unspecified psychosis ICD Codes: F29 - Unspecified psychosis not due to a substance or known physiological condition Assessment & Plan Continue current treatment plan Justification for Cont. Inpt. Patient would decompensate in a less restrictive setting Shine Phillip DO Feb 03, 2017 14:45
[2017-02-03 18:21] VITALS: BP 120/71; PULSE 76; RESP 18; TEMP 96.5; O2SAT 96
[2017-02-04 06:00] VITALS: BP 114/55; PULSE 85; RESP 18; TEMP 97.2; O2SAT 98
[2017-02-04] MEDS: NICOTINE 21 MG/24 HR PATCH T-DERMAL SCH (07:58)
[2017-02-04] MEDS: REMOVE OLD PATCH T-DERMAL SCH (07:59)
[2017-02-04] MEDS: THIAMINE HCL 100 MG TAB PO SCH (08:00)
[2017-02-04] MEDS: risperiDONE 1 MG TAB PO SCH ×2 (08:00→20:57)
[2017-02-04] MEDS: LITHIUM ORAL SOLUTION 300 MG/5 ML CUP PO SCH ×2 (08:00→20:58)
[2017-02-04] MEDS: ASPIRIN EC 325 MG TABEC PO SCH (08:01)
[2017-02-04] MEDS: FOLIC ACID 1 MG TAB PO SCH (08:01)
[2017-02-04] MEDS: ATORVASTATIN 10 MG TAB PO SCH (08:01)
[2017-02-04] MEDS: MULTIVITAMIN TAB PO SCH (08:01)
--- NOTE | 2017-02-04 11:39 | HHI.PYPN ---
Subjective Remarks Patient was seen and case discussed with nursing. Patient remains quite seclusive spending all his time in bed, only getting up for meals. Remains malodorous. Remains difficult to understand given speech impediment. Says he is feeling sad but he denies suicidal or homicidal ideation intent or plan. Compliant with medications and tolerating it well. Affect is quite anxious Mental Status Examination Appearance: Disheveled Consciousness: Alert Orientation: Person, Place Motor Activity: Normal gait Speech: Slow, Incoherent (at times due to patient not having his dentures) Language: Adequate Fund of Knowledge: Inadequate Attention and Concentration: Inadequate Memory: Impaired Mood: Sad, Other ("okay") Affect: Anxious Thought Process & Associations: Logical Thought Content: Thought blocking Hallucination Type: None Delusion Type: None Suicidal Ideation: No Suicidal Plan: No Suicidal Intention: No Homicidal Ideation: No Homicidal Plan: No Homicidal Intention: No Insight: Poor Judgment: Poor Results Vitals/IOs Vital Signs Date Time Temp Pulse Resp B/P (MAP) Pulse Ox O2 Delivery O2 Flow Rate FiO2 02/04/17 06:00 97.2 85 18 114/55 (74) 98 Assessment & Plan Problem List: (1) Unspecified psychosis ICD Codes: F29 - Unspecified psychosis not due to a substance or known physiological condition Assessment & Plan Continue current treatment plan Justification for Cont. Inpt. Patient will decompensate in a less restrictive setting Shine Phillip DO Feb 04, 2017 11:39
[2017-02-04 18:25] VITALS: BP 140/76; PULSE 96; RESP 18; TEMP 98; O2SAT 99
[2017-02-05 06:04] VITALS: BP 112/63; PULSE 76; RESP 16; TEMP 98; O2SAT 97
[2017-02-05] MEDS: REMOVE OLD PATCH T-DERMAL SCH (09:00)
--- NOTE | 2017-02-05 09:56 | HHI.PYPN ---
Subjective Remarks Patient seen for follow-up, chart review. Discussion she staff reported the patient is mostly seclusive to his room, noted to be malodorous but is sleeping well. Patient reports feeling "fine" but did report feeling somewhat sad and depressed stating that the reason he still he says "my kids". Patient states that he last saw his son about 1 week ago and does keep in contact with him occasionally. Patient denies any suicide ideations patient was unableto provide any other reason that is currently contributing for him to feel sad or depressed. Patient denies any perceptual disturbances or any delusions. Patient continued be noted with some speech latency and last thought blocking today. Patient appears and states he is feeling less confused but continues be alert and oriented only to person and place. Review of Systems Except as stated in HPI: all other systems reviewed are Neg Mental Status Examination Appearance: Disheveled, Malodorous Consciousness: Alert Orientation: Person, Place Motor Activity: Normal gait Speech: Slow, Speech impediment Language: Adequate Fund of Knowledge: Inadequate Attention and Concentration: Inadequate Memory: Impaired Mood: Sad, Other ("okay") Affect: Sad Thought Process & Associations: Linear, Other (concrete) Thought Content: Thought blocking Hallucination Type: None Delusion Type: None Suicidal Ideation: No Suicidal Plan: No Suicidal Intention: No Homicidal Ideation: No Homicidal Plan: No Homicidal Intention: No Insight: Poor Judgment: Poor Results Labs Labs reviewed Test 02/05/17 07:15 [place] Level 0.8 MEQ/L Vitals/IOs Vital Signs Date Time Temp Pulse Resp B/P (MAP) Pulse Ox O2 Delivery O2 Flow Rate FiO2 02/05/17 06:04 98.0 76 16 112/63 (79) 97 Intake and Output 02/05/17 02/05/17 02/06/17 08:00 16:00 00:00 Intake Total 240 ml Balance 240 ml Assessment & Plan Problem List: (1) Unspecified psychosis ICD Codes: F29 - Unspecified psychosis not due to a substance or known physiological condition Assessment & Plan Patient at this time that be less confused, more engageable in interview today. Continues to have some speech latency as well as poverty of thought. Recent neuropsychological testing was done last week but reported that patient's neurocognitive deficits likely due to his previous episode of stroke subsequent sequela from that but also from a major neurocognitive disorder secondary to long-standing alcohol use disorder with subsequent dementia secondary to this. Patient does report some depressed mood but does denies any suicide ideations at this time. Patient lithium level now within therapeutic range. Collateral information pending for appropriate discharge planning. Continue current treatment regimen for now. Discharge planning in progress Justification for Cont. Inpt. At risk for decompensation at lower level of care Discharge Planning Patient return back to caregivers residence once psychiatrically stable. Elbert Jones MD Feb 05, 2017 09:56
[2017-02-05] MEDS: FOLIC ACID 1 MG TAB PO SCH (10:31)
[2017-02-05] MEDS: THIAMINE HCL 100 MG TAB PO SCH (10:31)
[2017-02-05] MEDS: MULTIVITAMIN TAB PO SCH (10:32)
[2017-02-05] MEDS: ATORVASTATIN 10 MG TAB PO SCH (10:32)
[2017-02-05] MEDS: risperiDONE 1 MG TAB PO SCH ×2 (10:32→21:07)
[2017-02-05] MEDS: LITHIUM ORAL SOLUTION 300 MG/5 ML CUP PO SCH ×2 (10:33→21:07)
[2017-02-05] MEDS: ASPIRIN EC 325 MG TABEC PO SCH (10:33)
[2017-02-05] MEDS: NICOTINE 21 MG/24 HR PATCH T-DERMAL SCH (10:36)
--- NOTE | 2017-02-05 14:02 | PD.TTN ---
Patient Problems 1. Discharge planning 2. Medication compliance 3. Knowledge deficit 4. Lack of coping skills Progress Toward Goals Provider Present: Dr. Telma Jones Provider Input: 02/05/17 Patient underwen a neuropsych test last week. He appears to have dementia related to chronic alcohol abuse. Presently Dr. Jones is managnig medications. Patient will return home with his caregivers when discharged. 01-31-17 Dr. Jones reported the patient is a transfer from another hospital. Patient has been running away from his home, is a poor historian, and confused. Additionally, patient suffers from metabolic disturbances. Psychiatric Counselors Present: JYOTHI Obregon Psych Therapist Input: 02/05/17 Patient remains tearful and confused. He is medication compliant. 01-31-17 Counselor will check with [facility] in an effort to determine patient's previous medical and psychiatric history. Group Spec/RT/OT/MON[place]ÑO Present: Sarah Vera, GPS, SABRA Rick, Sravan Liang, OT Group Spec/RT/OT/MON[place]ÑO Input: 02/05/17 Occasionally attends groups. 01-31-17 Patient is refusing to participate in recreational group activities. Discharge Plan Patient's choice of Provider Counselor has spoken to patient's parents, (mom - also power of deputy prosecuting attorney) [phone], who reported the patient will be returning home with his caregivers, Jah justino Anna Kyle [phone], when patient is psychiatrically stable. Documentation Scribe: JYOTHI Obregon Date Resolved: Feb 05, 2017 Marie Corral Feb 05, 2017 14:02
[2017-02-05 17:45] VITALS: BP 120/64; PULSE 78; RESP 18; TEMP 99; O2SAT 98
[2017-02-06 06:03] VITALS: BP 129/64; PULSE 86; RESP 16; TEMP 97.4; O2SAT 99
[2017-02-06] MEDS: REMOVE OLD PATCH T-DERMAL SCH (09:00)
[2017-02-06] MEDS: ATORVASTATIN 10 MG TAB PO SCH (09:08)
[2017-02-06] MEDS: ASPIRIN EC 325 MG TABEC PO SCH (09:08)
[2017-02-06] MEDS: risperiDONE 1 MG TAB PO SCH ×2 (09:08→21:22)
[2017-02-06] MEDS: FOLIC ACID 1 MG TAB PO SCH (09:08)
[2017-02-06] MEDS: THIAMINE HCL 100 MG TAB PO SCH (09:09)
[2017-02-06] MEDS: LITHIUM ORAL SOLUTION 300 MG/5 ML CUP PO SCH ×2 (09:09→21:23)
[2017-02-06] MEDS: MULTIVITAMIN TAB PO SCH (09:09)
[2017-02-06] MEDS: NICOTINE 21 MG/24 HR PATCH T-DERMAL SCH (09:13)
--- NOTE | 2017-02-06 10:59 | HHI.PYPN ---
Subjective Remarks Patient seen for follow-up, chart review. Patient was found lying in hospital bed, cooperative noted to have taken a shower today and noted to be more interactive in good spirits today. Patient states that he isn't feeling "fine" , states that there is nothing that has been stressful for him at this time. Patient states that he wants to be able to go back to work once he was back home. Patient stated he has not communicated was caregivers for possible days of plans on calling them for visit today. Patient denies any perceptual disturbances denies any SI or HI or delusions. Patient states that his memory continues to be a problem but feels that it is slightly better today. Review of Systems Except as stated in HPI: all other systems reviewed are Neg Mental Status Examination Appearance: Appropriate Consciousness: Alert Orientation: Person, Place Motor Activity: Normal gait Speech: Slow, Speech impediment Language: Adequate Fund of Knowledge: Inadequate Attention and Concentration: Inadequate Memory: Impaired Mood: Appropriate, Other ("okay") Affect: Appropriate Thought Process & Associations: Linear, Other (concrete) Thought Content: Appropriate Hallucination Type: None Delusion Type: None Suicidal Ideation: No Suicidal Plan: No Suicidal Intention: No Homicidal Ideation: No Homicidal Plan: No Homicidal Intention: No Insight: Poor Judgment: Poor Results Vitals/IOs Vital Signs Date Time Temp Pulse Resp B/P (MAP) Pulse Ox O2 Delivery O2 Flow Rate FiO2 02/06/17 06:03 97.4 86 16 129/64 (85) 99 Assessment & Plan Problem List: (1) Unspecified psychosis ICD Codes: F29 - Unspecified psychosis not due to a substance or known physiological condition Assessment & Plan Patient this time noted to be more reactive, less thought blocking and speech latency a more engaging with interview today. Patient denies feeling sad or depressed today stating that he plans on trying to find work once he is back home. Patient tolerating medication well with no reported adverse drug reactions at this time. Caregivers to be contacted for visit as patient possibly to be discharged tomorrow back to their care. Continue current treatment. Discharge planning in progress Justification for Cont. Inpt. At risk for further decompensation if at lower level of care Discharge Planning Patient to return back to caregivers residence once psychiatrically stable. Elbert Jones MD Feb 06, 2017 10:59
[2017-02-06 18:16] VITALS: BP 130/70; PULSE 86; RESP 18; TEMP 98; O2SAT 99
[2017-02-07 05:57] VITALS: BP 107/74; PULSE 78; RESP 16; TEMP 97.4; O2SAT 98
[2017-02-07] MEDS: LITHIUM ORAL SOLUTION 300 MG/5 ML CUP PO SCH (08:52)
[2017-02-07] MEDS: NICOTINE 21 MG/24 HR PATCH T-DERMAL SCH (08:53)
[2017-02-07] MEDS: MULTIVITAMIN TAB PO SCH (08:54)
[2017-02-07] MEDS: ATORVASTATIN 10 MG TAB PO SCH (08:54)
[2017-02-07] MEDS: FOLIC ACID 1 MG TAB PO SCH (08:54)
[2017-02-07] MEDS: THIAMINE HCL 100 MG TAB PO SCH (08:55)
[2017-02-07] MEDS: REMOVE OLD PATCH T-DERMAL SCH (08:56)
[2017-02-07] MEDS: risperiDONE 1 MG TAB PO SCH (09:02)
[2017-02-07] MEDS: ASPIRIN EC 325 MG TABEC PO SCH (09:03)
[2017-02-07] MEDS ORDERED: THIA100 PO (12:42)
[2017-02-07] MEDS ORDERED: RISP1 PO (12:42)
[2017-02-07] MEDS ORDERED: LIPI10TA PO (12:42)
[2017-02-07] MEDS ORDERED: FOLI1TAB6 PO (12:42)
[2017-02-07] MEDS ORDERED: LITH300T3 PO (12:59)
--- NOTE | 2017-02-07 15:56 | HHI.DS ---
Psychiatry Discharge Summary Inpatient Psychiatric care?: Yes Advance Directive: No Reason Not Provided: refused Mental Health AdvanceDirective: No Health Care Proxy: No Admission Admission Date Jan 27, 2017 at 15:19 Admission Diagnosis: (1) Unspecified psychosis ICD Code: F29 - Unspecified psychosis not due to a substance or known physiological condition (2) Substance-induced persisting dementia ICD Code: F19.97 - Other psychoactive substance use, unspecified with psychoactive substance-induced persisting dementia Brief History Patient is a 51-year-old man, reports being with 2 children, states he is employed, with unclear past psychiatric history but as per chart alcohol use disorder, depression, unknown previous psychiatric hospitalizations or suicide attempts, with a past medical history as per chart with DVT, history of lung and throat cancer, gout was presented initially on 01/22/17 at [facility] for altered mental status and subsequently brought to the [facility] due to concerns of patient's ability to care for himself and was transferred to the inpatient psychiatry for further evaluation and management. Reviewing previous chart frontal in hospital patient had a head CT which was noted to have old infarct in the medial right cerebellar hemisphere, chest x-ray was negative and urine toxicology was negative. Patient was found walking in the hallway, cooperative interview with senior grant writer nurse. Patient is alert and oriented only to person not place or date. Patient states that presently and I is Obama. Patient reports that he is living with his but as per chart emergency contact is Blanksa White which may be due to sister. Patient is a poor historian with him, as will speech at times and disorganized. Past psychiatric history unclear as per patient he denies but is noted as per chart the patient is on BuSpar 30 minutes by mouth twice a day, diazepam 5 mg by mouth twice a day, lithium 300 mg by mouth 3 times a day risperidone 2 mg by mouth twice a day as well as aspirin, atorvastatin, folic acid, propanolol and thiamine. , Patient denies previous psychiatric hospitalization or suicide attempts Substance use history: Patient states that he quit using tobacco 2 years ago, continues daily alcohol use about 3 beers at a time last use was 7 days ago. Marijuana use last use was 2 weeks ago which she states she is occasionally, patient still reports remote cocaine use one year ago. Past medical history: Patient denies but as per chart DVT, history of lung and throat cancer and gout Allergies: NKDA Social history: Patient states he is domicile with a and 2 children for 40 years old, employed, [employer] education high school, no congregation affiliation, no background, no access to firearms. Tobacco Use In Past 30 Days: 5 or More Cigarettes/Day Alcohol Use: 2-4 Times Per Month Hospital Course Patient is a 51-year-old man, reports being with 2 children, states he is employed, with unclear past psychiatric history but as per chart alcohol use disorder, depression, unknown previous psychiatric hospitalizations or suicide attempts, with a past medical history as per chart with DVT, history of lung and throat cancer, gout was presented initially on 01/22/17 at [facility] for altered mental status and subsequently brought to the [facility] due to concerns of patient's ability to care for himself and was transferred to the inpatient psychiatry for further evaluation and management. Patient was restarted on lithium 300mg PO TID but was found to have supratherapeutic levels and was decreased to 200mg PO BID which was within therapeutic range as per subsequent lithium levels, risperidone 1mg PO BID, which he tolerated well. Patient was noted to have confusion and disorientation initially but noted to improve but was noted to have baseline neurocognitive deficits. He did not endorse suicidal ideation nor perceptual disturbances and maintained fair mood , was goal-directed and hopeful to continue to improve and maintain sobriety from alcohol use. Patient agreed to continue medication regimen and outpatient follow up for continuity of care. Patient counseled on abstinence from alcohol use which he acknowledged. Patient plans on returning home with caregivers. Patient advised to call 911 or go nearest ED in case of emergency. Patient agrees with plan. Results Blood Pressure 107 / 74 Vital Signs Date Time Temp Pulse Resp B/P (MAP) Pulse Ox O2 Delivery O2 Flow Rate FiO2 02/07/17 05:57 97.4 78 16 107/74 (85) 98 Laboratory Tests Test 02/05/17 07:15 Laboratory Results Test 01/28/17 08:17 02/05/17 07:15 Cholesterol Level 109 MG/DL (120-200) HDL Cholesterol 44.2 MG/DL (40.0-60.0) Hemoglobin A1c 5.1 % (4.3-6.0) LDL Cholesterol 45 MG/DL (0-99) Triglycerides Level 97 MG/DL (42-150) [place] Level 0.8 MEQ/L (0.5-1.5) Summary of Procedures none Imaging Last Impressions Head CT 01/31/17 0000 Signed Impressions: Service Date/Time: Tuesday, January 31, 2017 09:10 - CONCLUSION: 1. Remote infarct right cerebellum. 2. No acute intracranial abnormality. Elbert Bentley MD Pending results at discharge: No Medications # of Antipsychotic meds at D/C: 1 Approp Antipsych med options 1 - Minimum of three failed multiple trials of monotherapy. 2 - Documented plan to taper to monotherapy due to previous use of multiple meds OR cross-taper in progress at D/C. 3 - Documentation of augmentation of Clozapine. 4 - Justification other than those listed in allowable values 1-3, document here : Discharge Discharge Date: Feb 07, 2017 Discharge Diagnosis: (1) Unspecified psychosis ICD Code: F29 - Unspecified psychosis not due to a substance or known physiological condition (2) Substance-induced persisting dementia ICD Code: F19.97 - Other psychoactive substance use, unspecified with psychoactive substance-induced persisting dementia Pt Condition on Discharge: Stable Discharge Disposition: Discharge Home Discharge Instructions Diet Instructions: Heart Healthy Diet Activities you can perform: Regular-No Restrictions Scheduled Appointment: Angel Churchill Appointment Date: Feb 09, 2017 Appointment Time: 7:15 AM Discharge Time > 30 minutes Mental Status Examination Appearance: Appropriate Consciousness: Alert Orientation: Person, Place Motor Activity: Normal gait Speech: Slow, Speech impediment Language: Adequate Fund of Knowledge: Inadequate Attention and Concentration: Inadequate Memory: Impaired Mood: Appropriate Affect: Appropriate Thought Process & Associations: Intact, Linear Thought Content: Appropriate Hallucination Type: None Delusion Type: None Suicidal Ideation: No Suicidal Plan: No Suicidal Intention: No Homicidal Ideation: No Homicidal Plan: No Homicidal Intention: No Insight: Fair Judgment: Impulsive Discharge/Advance Care Plan Health Problems: (1) Unspecified psychosis Goals to promote your health * To prevent worsening of your condition and complications * To maintain your health at the optimal level Directions to meet your goals Take your medications as prescribed Follow your dietary instruction Follow activity as directed Keep your appointments as scheduled Take your immunizations and boosters as scheduled If your symptoms worsen call your PCP, if no PCP go to Urgent Care Center or Emergency Room For 24/ questions related to your inpatient stay or results of tests pending at discharge, please contact Dr. Elbert Jones at Smoking is Dangerous to Your Health. Avoid second hand smoking Elbert Jones MD Feb 07, 2017 15:56
== END 2017-02-07 15:45 | disposition home or self-care (01) | DRG 885 ==
LOC: H260 15:19
PROVIDERS: ADMIT Student in an Organized Health Care Education/Training Program; ATTEND Student in an Organized Health Care Education/Training Program
DX: F29 Unspecified psychosis not due to a substance or known physiological condition (principal); R45.851 Suicidal ideations; F10.97 Alcohol use, unspecified with alcohol-induced persisting dementia; I69.322 Dysarthria following cerebral infarction; I69.319 Unspecified symptoms and signs involving cognitive functions following cerebral infarction; F12.90 Cannabis use, unspecified, uncomplicated; M10.9 Gout, unspecified; Z86.718 Personal history of other venous thrombosis and embolism; Z85.819 Personal history of malignant neoplasm of unspecified site of lip, oral cavity, and pharynx; Z85.118 Personal history of other malignant neoplasm of bronchus and lung; Z87.891 Personal history of nicotine dependence
CPT/HCPCS: 70450; 80048; 80053; 80061; 80178; 82607; 83036; 83735; 84100; 84439; 84443; 85007; 85027; 86592; 86703; 93005; 95819; Q0163